=== PATIENT | female | born 1995 | race Caucasian/White ===

== ENCOUNTER 2021-02-25 04:00 | Inpatient (IN) ==
[2021-02-25] MEDS ORDERED: Famotidine 20 MG/2 ML VIAL IVP PRN (04:23)
[2021-02-25] MEDS ORDERED: Ondansetron 4 MG/2 ML VIAL IVP PRN (04:23)
[2021-02-25] MEDS ORDERED: Azithromycin 500 MG in 0.9 % Sodium Chloride 250 ML IVPB PRN (04:23)
[2021-02-25] MEDS ORDERED: Metoclopramide 10 MG/2 ML VIAL IVP PRN (04:23)
[2021-02-25] MEDS ORDERED: Naloxone 0.4 MG/ML INJ IVP PRN (04:23)
[2021-02-25] MEDS ORDERED: *HR* Nalbuphine 10 MG/ML AMPUL IV PRN (04:23)
[2021-02-25] MEDS ORDERED: Lidocaine 1% 20 ML MDV INFILT PRN (04:23)
[2021-02-25] MEDS ORDERED: Oxytocin 20 units/ LR 1000 mL 20 UNIT/1,000 ML BAG IVC SCH ×2 (04:30→19:35)
[2021-02-25 04:49] LABS: Basophils % 0.5 %; Eosinophils # 0.1 K/mcL (0.0-0.6); Eosinophils % 1.5 %; Hematocrit 30.2 % (35.3-44.9); Hemoglobin 9.9 g/dL (11.5-15.4); Immature Granulocytes % 0.6 % (0-4); Lymphocytes # 2.2 K/mcL (0.6-4.6); Lymphocytes % 27.6 %; Mean Corpuscular HGB Conc 32.8 g/dL (31.6-35.5); Mean Corpuscular Hemoglobin 29.1 pg (28.0-33.3); Mean Corpuscular Volume 88.8 fL (83.0-100.0); Mean Platelet Volume 9.7 fL (9.4-12.4); Monocytes # 0.7 K/mcL (0.0-1.3); Monocytes % 9.2 %; Neutrophils # 4.9 K/mcL (1.6-8.9); Platelet Count 392 K/mcL (140-400); Red Cell Distribution Width 13.8 % (11.5-14.5); Segmented Neutrophils % 60.6 %; White Blood Count 8.1 K/mcL (4.3-11.1)
[2021-02-25] MEDS: Ringers Solution, Lactated 1,000 ML IVC SCH ×3 (04:54→14:32)
[2021-02-25 04:57] LABS: Amphetamine Screen,Urine Negative ng/mL (Cutoff=1000); Barbiturate Screen,Urine Negative ng/mL (Cutoff=200); Benzodiazepines Screen,Urine Negative ng/mL (Cutoff=200); Cannabinoid Screen,Urine Positive ng/mL (Cutoff = 50); Cocaine Screen,Urine Negative ng/mL (Cutoff= 300); Opiate Screen,Urine Negative ng/mL (Cutoff=300); Phencyclidine Screen,Urine Negative ng/mL (Cutoff=25)
[2021-02-25 05:20] LABS: Influenza A PCR Negative (Negative); Influenza B PCR Negative (Negative); Resp. Syncytial Virus PCR Negative (Negative)
[2021-02-25 05:21] LABS: SARS-CoV-2 by PCR (In House) Negative (Negative)
[2021-02-25] MEDS ORDERED: EPHEDrine 50 MG/ML VIAL IVP PRN (07:13)
[2021-02-25] MEDS: Epidural Premix (fent/bupiv) 110 ML EP SCH ×2 (11:45→18:13)
[2021-02-25] MEDS ORDERED: Measles/Mumps/Rubella Vacc 0.5 ML VIAL SQ PRN (19:35)
[2021-02-25] MEDS ORDERED: Benzocaine/Menthol 56 GM AEROSOL SPRAY TP PRN (19:35)
[2021-02-25] MEDS ORDERED: Lanolin 7 G OINT...G. TP PRN (19:35)
[2021-02-25] MEDS: Ibuprofen 600 MG TABLET PO SCH (19:51)
[2021-02-25] MEDS: Acetaminophen 325 MG TABLET PO SCH (19:53)
[2021-02-25] MEDS: Ondansetron ODT 4 MG TAB.RAPDIS SL PRN (20:07)
[2021-02-26] MEDS: Ibuprofen 600 MG TABLET PO SCH ×3 (02:10→16:51)
[2021-02-26] MEDS: Acetaminophen 325 MG TABLET PO SCH ×3 (02:11→16:51)
[2021-02-26 02:42] LABS: Basophils % 0.2 %; Eosinophils % 0.1 %; Hematocrit 32.7 % (35.3-44.9); Hemoglobin 10.7 g/dL (11.5-15.4); Immature Granulocytes % 0.5 % (0-4); Lymphocytes # 1.2 K/mcL (0.6-4.6); Lymphocytes % 11.3 %; Mean Corpuscular HGB Conc 32.7 g/dL (31.6-35.5); Mean Corpuscular Hemoglobin 29.3 pg (28.0-33.3); Mean Corpuscular Volume 89.6 fL (83.0-100.0); Mean Platelet Volume 9.5 fL (9.4-12.4); Monocytes # 0.7 K/mcL (0.0-1.3); Monocytes % 6.8 %; Neutrophils # 8.9 K/mcL (1.6-8.9); Platelet Count 384 K/mcL (140-400); Red Blood Count 3.65 M/mcL (3.82-4.97); Red Cell Distribution Width 13.6 % (11.5-14.5); Segmented Neutrophils % 81.1 %; White Blood Count 10.9 K/mcL (4.3-11.1)
[2021-02-26 08:05] VITALS: O2SAT 97
[2021-02-26] MEDS ORDERED: NON-FORMULARY MEDICATION 1 EACH EACH (Prenatal Caplet 1 TAB) PO SCH (09:00)
[2021-02-26] MEDS ORDERED: Prenatal Vit/FA 1 EACH TABLET PO SCH (09:00)
[2021-02-26] MEDS ORDERED: NON-FORMULARY MEDICATION 1 EACH EACH (Ferrous Sulfate 324 MG) PO SCH (09:00)
[2021-02-26 16:21] VITALS: BP 107/70; PULSE 80; TEMP 98.5
[2021-02-26] MEDS: Ondansetron ODT 4 MG TAB.RAPDIS SL PRN (17:45)
== END 2021-02-26 19:44 | disposition home or self-care (01) | DRG 560 ==
LOC: 1NENULAB 04:10 → 1NENUOBS 21:32
PROVIDERS: ADMIT Obstetrics & Gynecology; ATTEND Obstetrics & Gynecology